=== PATIENT | female | born 1970 | race Caucasian/White ===

== ENCOUNTER 2019-06-09 01:01 | Day surgery (SDC) | payer OTHER, SELFPAY ==
[2019-06-06 08:35] VITALS: BMI 24.7
--- NOTE | 2019-06-09 06:53 | WPDANESEPPF ---
Anes - Initial Pre Proc Eval Procedure: Operation Date: 06/09/19 08:00 Proposed Procedures p Screening Colonoscopy - Nathaniel Mena MD Date/Time: 06/09/19 06:53 Surgeon: Nathaniel Mena MD Pre Op Diagnosis: Neoplasm Screening Patient Data Age: 48 Gender: F Height: 5 ft 8 in Weight: 74 kg Allergies Allergy/AdvReac Type Severity Reaction Status Date / Time No Known Allergies Allergy Unknown Unverified 06/06/19 08:34 Home Medications Medication Instructions Recorded Confirmed Type etonogestrel-ethinyl estradiol 1 vag ring VAGINAL MONTHLY 06/06/19 06/06/19 History [NuvaRing] Patient hx anesthesia problems: none Family hx anesthesia problems: none PMFSH Past Medical History Medical History (Updated 06/09/19 @ 06:54 by Mainor Becker MD) Breast adenoma Surgical History Surgical History (Updated 06/09/19 @ 06:55 by Mainor Becker MD) S/P excision of fibroadenoma of breast Family History Family History Mother Hypertension Family history of Alzheimer's disease Father Hypertension Family history of diabetes mellitus in first degree relative Sibling Family history of malignant neoplasm of kidney Social History Social History Smoking status: Never smoker Alcohol intake: current Anes - Eval Final PreProcedure Day of Procedure 06/09/19 06:53 Patient weight: normal Heart: regular rate and rhythm Lungs: clear to auscultation Airway: Mallampati scale class 1 Neurological: alert and oriented Last oral intake: >/= 8 hours ASA classification: I Emergent: no Anesthesia type and monitoring: general GIVS and standard monitoring Informed Consent: The patient's anesthetic plan and its attendant risks and benefits were discussed with the patient/family/POA. Questions were solicited and answers provided to the satisfaction of the patient/family/POA.
[2019-06-09 07:06] VITALS: BP 132/85; PULSE 64; RESP 18; TEMP 36.8; O2SAT 99
[2019-06-09] MEDS: LACTATED RINGERS 1,000 ML 150 ML IV CONT (07:11)
--- NOTE | 2019-06-09 07:16 | PM.HPGS ---
History of Present Illness History of Present Illness Consent: Risks, benefits, and alternatives have been discussed and questions answered. Patient agrees to proceed with procedure. Chief complaint: Neoplasm Screening Narrative: Jennifer Farris is a 48 year old W female [place] for her 1st screening colonoscopy. Patient is asymptomatic there is no family history of colon cancer. [facility] Past Medical History Medical History Breast adenoma Surgical History Surgical History S/P excision of fibroadenoma of breast Family History Family History Mother Hypertension Family history of Alzheimer's disease Father Hypertension Family history of diabetes mellitus in first degree relative Sibling Family history of malignant neoplasm of kidney Social History Social History Smoking status: Never smoker Alcohol intake: current Meds Home Medications and Allergies Home Medications Medication Instructions Recorded Confirmed Type etonogestrel-ethinyl estradiol 1 vag ring VAGINAL MONTHLY 06/06/19 06/06/19 History [NuvaRing] Allergies Allergy/AdvReac Type Severity Reaction Status Date / Time No Known Allergies Allergy Unknown Unverified 06/09/19 07:05 Vital Signs Vital Signs - 24 hr 06/09/19 07:06 Temperature 36.8 C Pulse Rate 64 Respiratory Rate 18 Blood Pressure 132/85 Pulse Oximetry 99 Exam Const: Orientation/consciousness: patient oriented x3 Resp: Auscultation: clear to auscultation bilaterally Cardio: Rate: regular rate Rhythm: regular rhythm Heart sounds: no murmurs GI: GI Palp: Yes Soft to palpation, No Tenderness to palpation present (GI), Yes No hepatosplenomegaly present and No Palpable mass present Auscultation: normal bowel sounds Neuro: General: patient oriented x3 and no focal motor deficits Extrem: General: no pedal edema Assessment and Plan Additional Plan Screening colonoscopy in average risk patient
[2019-06-09] MEDS: SIMETHICONE ORAL SUSPENSION 20 MG/0.3 ML 30 ML BOTTLE 0.6 ML IRRIGATION (08:18)
[2019-06-09 08:26] VITALS: BP 105/53; PULSE 53; RESP 17; O2SAT 100
[2019-06-09 08:36] VITALS: BP 106/59; PULSE 48; RESP 18; O2SAT 100
[2019-06-09 08:46] VITALS: BP 117/66; PULSE 50; RESP 17; O2SAT 100
== END 2019-06-09 09:09 | disposition home or self-care (01) ==
PROVIDERS: PCP Family Medicine; Visit Provider Internal Medicine Gastroenterology
PROC: 0DJD8ZZ Inspection of Lower Intestinal Tract, Via Natural or Artificial Opening Endoscopic (ICD-10-PCS; CPT 45378; principal; 2019-06-09 08:00)
DX: Z12.11 Encounter for screening for malignant neoplasm of colon (principal); D12.5 Benign neoplasm of sigmoid colon; K64.8 Other hemorrhoids
CPT/HCPCS: 45385; 88305; J2704; J7120

== ENCOUNTER 2019-08-28 07:26 | Outpatient (CLI) | payer OTHER, SELFPAY ==
--- NOTE | ~2019-08-28 | MM_ITS ---
EXAMINATION: MM screening alexander BI w calin HISTORY: Screening mammogram TECHNIQUE: Craniocaudal and mediolateral oblique 3-D tomosynthesis images were obtained and synthetic 2-D images were generated. CAD analysis was submitted and interpreted. COMPARISON: 08/02/2018, 07/17/2017 bilateral digital screening mammogram examinations 07/13/2016 diagnostic left digital mammogram 07/03/2016 bilateral digital screening mammogram BREAST PARENCHYMAL COMPOSITION: There are scattered areas of fibroglandular density. FINDINGS: There is no evidence of suspicious mass, calcification, or architectural distortion to sugg est malignancy in either breast. There has been no suspicious interval change. IMPRESSION: 1. No mammographic evidence of malignancy. 2. Recommend routine screening mammography in one year. BI-RADS Category 1: Negative Reviewed, dictated and finalized at location A.
== END 2019-08-28 07:27 | disposition home or self-care (01) ==
PROVIDERS: PCP Family Medicine; Visit Provider Nurse Practitioner
DX: Z12.31 Encounter for screening mammogram for malignant neoplasm of breast (principal)
CPT/HCPCS: 77063; 77067

== ENCOUNTER → 2020-07-16 00:57 | Outpatient (CLI) | payer OTHER, SELFPAY ==
[2020-07-16 21:02] LABS: SARS-CoV-2 RNA PCR Negative
== END ==
PROVIDERS: PCP Family Medicine; Visit Provider Obstetrics & Gynecology Gynecology
DX: Z01.812 Encounter for preprocedural laboratory examination (principal); Z20.822 Contact with and (suspected) exposure to COVID-19
CPT/HCPCS: C9803; U0003; U0005

== ENCOUNTER 2020-07-19 02:38 | Day surgery (SDC) | payer OTHER, SELFPAY ==
[2020-06-22 13:01] VITALS: BMI 24.3
--- NOTE | 2020-07-07 13:26 | PC.NURSE ---
Pt states no changes in health history or medications since previous interview. New Covid date/time and pre-op instructions reviewed with pt. Pt denies questions at this time.
--- NOTE | 2020-07-19 07:31 | WPDANESEPPF ---
Anes - Initial Pre Proc Eval Procedure: Operation Date: 07/19/20 09:30 Proposed Procedures p Hysteroscopy, Dilation and Curettage - Carina Shell MD Date/Time: 07/19/20 07:31 Surgeon: Carina Shell MD Pre Op Diagnosis: cervical polyps Patient Data Age: 49 Gender: F Height: 1.73 m Weight: 72.5 kg Allergies Allergy/AdvReac Type Severity Reaction Status Date / Time No Known Allergies Allergy Unknown Unverified 07/19/20 08:29 Home Medications Medication Instructions Recorded Confirmed Type etonogestrel-ethinyl estradiol 1 vag ring VAGINAL MONTHLY 06/06/19 07/07/20 History [NuvaRing] Patient hx anesthesia problems: none Family hx anesthesia problems: none PMFSH Past Medical History Medical History (Updated 07/19/20 @ 07:38 by Carina Shell MD) Breast adenoma (normal spontaneous vaginal delivery) x3 Status post hysteroscopy 2018-benign for menorrhagia Surgical History Surgical History (Updated 07/19/20 @ 07:37 by Carina Shell MD) History of elective induced at 20 wks for CMV S/P excision of fibroadenoma of breast Family History Family History Mother Hypertension Family history of Alzheimer's disease Father Hypertension Family history of diabetes mellitus in first degree relative Sibling Family history of malignant neoplasm of kidney Social History Social History Smoking status: Never smoker Alcohol intake: current Drinks per week: 1 Substance use: never Substance use type: does not use Living arrangements: with family Spiritual care concerns: No Anes - Eval Final PreProcedure Day of Procedure 07/19/20 07:31 Patient weight: normal Heart: regular rate and rhythm Lungs: clear to auscultation and normal air movement Airway: Mallampati scale class II Neurological: alert and oriented Last oral intake: >/= 8 hours ASA classification: I Emergent: no Anesthetic plan: proceed Anesthesia type and monitoring: general GIVS and standard monitoring Informed Consent: The patient's anesthetic plan and its attendant risks and benefits were discussed with the patient/family/POA. Questions were solicited and answers provided to the satisfaction of the patient/family/POA.
--- NOTE | 2020-07-19 07:32 | WPDHPUPDATE1 ---
History and Physical Update Update Date/Time: 07/19/20 07:32 History and Physical has been reviewed, including an updated exam of the patient. There are NO changes in the patient's condition. Risks, benefits, and alternatives have been discussed and questions answered. Patient agrees to proceed with procedure.
--- NOTE | 2020-07-19 07:32 | PM.HPGS ---
History of Present Illness History of Present Illness Consent: Risks, benefits, and alternatives have been discussed and questions answered. Patient agrees to proceed with procedure. Chief complaint: cervical polyps Narrative: Jennifer Farris is a 49 year old female with possible polyp found on work up of abnormal pap (ASC-R/O HG with -HPV). Colposcopy was performed and biopsy x 2 with cervicitis and reactive atypia at one site and possible mild dysplasia at the other. ECC showed fragments of polyp but no polyp visible. Recommend to proceed with hysteroscopy to further evaluate. Risks of infection, bleeding, and perforation reviewed. Possible pathology reviewed. Agrees to proceed. Review of Systems Review of Systems: All systems reviewed & are unremarkable except as noted in HPI and below PMFSH Past Medical History Medical History (Updated 07/19/20 @ 07:38 by Carina Shell MD) Breast adenoma (normal spontaneous vaginal delivery) x3 Status post hysteroscopy 2018-benign for menorrhagia Surgical History Surgical History (Updated 07/19/20 @ 07:37 by Carina Shell MD) History of elective induced at 20 wks for CMV S/P excision of fibroadenoma of breast Family History Family History Mother Hypertension Family history of Alzheimer's disease Father Hypertension Family history of diabetes mellitus in first degree relative Sibling Family history of malignant neoplasm of kidney Social History Social History Smoking status: Never smoker Alcohol intake: current Drinks per week: 1 Substance use: never Substance use type: does not use Living arrangements: with family Spiritual care concerns: No Meds Home Medications and Allergies Home Medications Medication Instructions Recorded Confirmed Type etonogestrel-ethinyl estradiol 1 vag ring VAGINAL MONTHLY 06/06/19 07/07/20 History [NuvaRing] Allergies Allergy/AdvReac Type Severity Reaction Status Date / Time No Known Allergies Allergy Unknown Unverified 07/07/20 13:27 Exam Const: General: healthy appearing and alert Orientation/consciousness: patient oriented x3 Resp: Effort & Inspection: normal respiratory effort Auscultation: clear to auscultation bilaterally Cardio: Rate: regular rate Rhythm: regular rhythm GI: GI Palp: Yes Soft to palpation, No Tenderness to palpation present (GI) and No Palpable mass present : External Female Exam: normal external appearance Speculum Exam - Vagina: normal appearance of the vagina and normal vaginal discharge Speculum Exam - Cervix: normal appearance of the cervix Bimanual exam- vagina & uterus: uterine size normal and consistency normal Bimanual Exam- Adnexa, other: normal adnexae and No adnexal tenderness Neuro: General: patient oriented x3 Assessment and Plan Assessment and plan (1) Polyp at cervical os: Code(s): N84.1 - Polyp of cervix uteri Status: Acute Assessment and Plan: not visible but on pathology plan to evaluate with hysteroscopy
[2020-07-19] MEDS: LACTATED RINGERS 1,000 ML 30 ML IV CONT (08:21)
[2020-07-19] MEDS: ACETAMINOPHEN 500 MG TABLET 1000 MG PO (08:21)
--- NOTE | 2020-07-19 09:53 | PM.PROC ---
Procedure Note - Detailed Date of procedure: 07/19/20 Pre-op diagnosis: cervical polyps Post-op diagnosis: same Procedure performed: D and C hysteroscopy with MyoSure Description of procedure: The patient was taken to the operating room and placed in the dorsal lithotomy position under anesthesia. She was prepped and draped in the usual sterile fashion. [place] speculum was placed in the vagina and the cervix is grasped on the anterior lip with a tenaculum. The uterus is sounded to 7cm. The cervix is injected with 1% lidocaine in each quadrant and serially dilated with [place]gar is. The diagnostic hysteroscope is placed with the stated findings. The MyoSure device is requested and opened. The patient observation assistant opened the small MyoSure camera and the XL MyoSure device therefore the large MyoSure camera was then opened and utilized. Under direct visualization the thickened areas and lesions were removed with the MyoSure device. MyoSure device and camera are removed. Medium sharp curette was used to sharply curette the endometrium until a good uterine cry was noted in all areas. All instruments are removed. Sponge, needle, and instrument counts are correct per the OR staff. Patient is awakened from anesthesia and taken to recovery in stable condition. Anesthesia: MAC and local Surgeon: Carina Shell MD Estimated blood loss (mL): 5 Drains: No Packing: No Pathology: yes (endometrial curettings and shavings) Complications: No immediate complications Condition: stable Disposition: PACU Findings: Thickened endometrium anteriorly with a polyp appearing lesion at the left mid fundus. Thickened lining near the endocervical junction anteriorly on the right. No specific cervical lesions noted.
[2020-07-19 10:00] VITALS: BP 120/77; PULSE 67; RESP 14; O2SAT 98
[2020-07-19 10:30] VITALS: BP 147/79; PULSE 49; RESP 12
[2020-07-19 11:00] VITALS: BP 164/81; PULSE 42; RESP 14; O2SAT 100
[2020-07-19 11:23] VITALS: BP 166/80
[2020-07-19 11:25] VITALS: BP 181/84; PULSE 52
[2020-07-19 11:35] VITALS: BP 136/84; PULSE 59; RESP 14
--- NOTE | 2020-07-19 11:58 | SUR.PHASEII ---
[address] MUÑOZ OF PT BLOOD PRESSURE BEING HYPERTENSIVE OVER THE LAST 45 MINUTES IN BOTH ARMS. PT WAS HYPERTENSIVE IN PRE-OP, HE RECOMMENDS SHE FOLLOW UP WITH HER PRIMARY. NO NEW ORDERS
== END 2020-07-19 11:55 | disposition home or self-care (01) ==
PROVIDERS: PCP Family Medicine; Visit Provider Obstetrics & Gynecology Gynecology
PROC: 0U5B8ZZ Destruction of Endometrium, Via Natural or Artificial Opening Endoscopic (ICD-10-PCS; CPT 58563; principal; 2020-07-19 09:30)
DX: D25.0 Submucous leiomyoma of uterus (principal); B25.9 Cytomegaloviral disease, unspecified
CPT/HCPCS: 58561; 88305; A9270; C9803; J1100; J2250; J2405; J2704; J3010; J7030; J7120; U0003; U0005

== ENCOUNTER 2020-08-30 14:54 | Outpatient (CLI) | payer OTHER, SELFPAY ==
--- NOTE | ~2020-08-30 | MM_ITS ---
EXAMINATION: MM screening alexander BI w calin HISTORY: Screening mammogram TECHNIQUE: Craniocaudal and mediolateral oblique 3-D tomosynthesis images were obtained and synthetic 2-D images were generated. CAD analysis was submitted and interpreted. COMPARISON: 09/13/2019, 08/02/2018, 07/17/2017 bilateral digital screening mammogram examinations BREAST PARENCHYMAL COMPOSITION: There are scattered areas of fibroglandular density. FINDINGS: There is no evidence of suspicious mass, calcification, or architectural distortion to sugg est malignancy in either breast. There has been no suspicious interval change. IMPRESSION: 1. No mammographic evidence of malignancy. 2. Recommend routine screening mammography in one year. BI-RADS Category 1: Negative Reviewed, dictated and finalized at location A.
== END 2020-08-30 14:55 | disposition home or self-care (01) ==
PROVIDERS: PCP Family Medicine; Visit Provider Nurse Practitioner
DX: Z12.31 Encounter for screening mammogram for malignant neoplasm of breast (principal)
CPT/HCPCS: 77063; 77067

== ENCOUNTER 2021-09-23 08:36 | Outpatient (CLI) | payer OTHER, SELFPAY ==
--- NOTE | ~2021-09-23 | MM_ITS ---
EXAMINATION: MM screening alexander BI w calin HISTORY: Screening TECHNIQUE: Craniocaudal and mediolateral oblique 3-D tomosynthesis images were obtained and synthetic 2-D images were generated. CAD analysis was submitted and interpreted. COMPARISON: Comparison to multiple prior studies sequentially, with oldest reviewed study dated 07/03. BREAST PARENCHYMAL COMPOSITION: There are scattered areas of fibroglandular density. FINDINGS: There is no evidence of suspicious mass, calcification, or architectural distortion to sugg est malignancy in either breast. There has been no suspicious interval change. IMPRESSION: 1. No mammographic evidence of malignancy. 2. Recommend routine screening mammography in one year. BI-RADS Category 1: Negative Reviewed, dictated and finalized at location A.
== END 2021-09-23 08:37 | disposition home or self-care (01) ==
LOC: ANHIMG 08:37
PROVIDERS: PCP Family Medicine; Visit Provider Nurse Practitioner
DX: Z12.31 Encounter for screening mammogram for malignant neoplasm of breast (principal)
CPT/HCPCS: 77063; 77067

== ENCOUNTER 2022-11-23 07:22 | Outpatient (CLI) | payer OTHER, SELFPAY ==
--- NOTE | ~2022-11-23 | MM_ITS ---
EXAMINATION: MM screening [facility] BI w calin HISTORY: Screening mammogram TECHNIQUE: Craniocaudal and mediolateral oblique 3-D tomosynthesis images were obtained and synthetic 2-D images were generated. CAD analysis was submitted and interpreted. COMPARISON: 09/23/2021, 08/30/2020, 08/28/2019 BREAST PARENCHYMAL COMPOSITION: There are scattered areas of fibroglandular density. FINDINGS: No suspicious mass, calcification, or architectural distortion are identified in either elma ast to suggest malignancy. There has been no suspicious interval change. IMPRESSION: 1. No mammographic evidence of malignancy. 2. Recommend routine screening mammography in one year. BI-RADS Category 1: Negative Reviewed, dictated and finalized at location L.
== END 2022-11-23 07:23 | disposition home or self-care (01) ==
PROVIDERS: PCP Family Medicine; Visit Provider Nurse Practitioner
DX: Z12.31 Encounter for screening mammogram for malignant neoplasm of breast (principal)
CPT/HCPCS: 77063; 77067

== ENCOUNTER → 2023-02-26 16:02 | Outpatient (CLI) | payer OTHER, SELFPAY ==
--- NOTE | ~2023-02-26 | XR_ITS ---
EXAMINATION: XR knee RT 3V DATE: 02/26/2023 16:58 INDICATION: Knee pain. TECHNIQUE: 3 views of right knee were obtained. COMPARISON: None. FINDINGS: Bone alignment is normal. No fracture. There is mild osteoarthritis of medial and patellofe moral compartments characterized by tiny osteophytes. No knee joint effusion. IMPRESSION: 1. Mild knee osteoarthritis. Reviewed, dictated and finalized at location E. 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
== END ==
PROVIDERS: PCP Family Medicine; Visit Provider Physician Assistant Medical
DX: M17.11 Unilateral primary osteoarthritis, right knee (principal)
CPT/HCPCS: 73562

== ENCOUNTER 2023-11-27 07:18 | Outpatient (CLI) | payer OTHER, SELFPAY ==
--- NOTE | ~2023-11-27 | MM_ITS ---
EXAMINATION: MM screening alexander BI w calin HISTORY: Screening TECHNIQUE: Craniocaudal and mediolateral oblique 3-D tomosynthesis images were obtained and synthetic 2-D images were generated. CAD analysis was submitted and interpreted. COMPARISON: Comparison to multiple prior studies sequentially, with oldest reviewed study dated 06/2019. BREAST PARENCHYMAL COMPOSITION: Not dense: There are scattered areas of fibroglandular density. FINDINGS: New focal asymmetries centrally in the right breast on CC view. Left breast is stable witho ut evidence for malignancy. IMPRESSION: 1. New focal asymmetry centrally in the right breast on CC view. 2. Additional mammographic views and possible breast ultrasound are recommended. BI-RADS Category 0: Incomplete: Needs additional imaging evaluation. Reviewed, dictated and finalized at location B. IMPRESSION: 1. New focal asymmetry centrally in the right breast on CC view. 2. Additional mammographic views and possible breast ultrasound are recommended . BI-RADS Category 0: Incomplete: Needs additional imaging evaluation.
== END 2023-11-27 07:19 | disposition home or self-care (01) ==
LOC: ANHIMG 07:19
PROVIDERS: PCP Family Medicine; Visit Provider Obstetrics & Gynecology Gynecology
DX: Z12.31 Encounter for screening mammogram for malignant neoplasm of breast (principal); N64.89 Other specified disorders of breast
CPT/HCPCS: 77063; 77067

== ENCOUNTER 2023-12-13 11:22 | Outpatient (CLI) | payer OTHER, SELFPAY ==
--- NOTE | ~2023-12-13 | MM_ITS ---
EXAMINATION: MM diagnostic alexander RT w calin HISTORY: Right breast asymmetry TECHNIQUE: Additional 3-D tomosynthesis images of the right breast were performed and synthetic 2-D i mages were generated. CAD analysis was submitted and interpreted. COMPARISON: 11/27/2023, 11/23/2022, 09/23/2021, 08/30/2020 BREAST PARENCHYMAL COMPOSITION:Not Dense. There are scattered areas of fibroglandular density. FINDINGS: Spot compression views demonstrate no persistent mass lesion or suspicious distortion. No s uspicious microcalcification. IMPRESSION: No mammographic evidence for malignancy. BI-RADS Category 1: Negative Reviewed, dictated and finalized at location M.
== END 2023-12-13 11:23 | disposition home or self-care (01) ==
LOC: ANHIMG 11:23
PROVIDERS: PCP Family Medicine; Visit Provider Obstetrics & Gynecology Gynecology
DX: R92.8 Other abnormal and inconclusive findings on diagnostic imaging of breast (principal)
CPT/HCPCS: 77061; 77065; G0279

== ENCOUNTER 2024-09-29 00:44 | Day surgery (SDC) | payer OTHER, SELFPAY ==
[2024-09-08 11:15] VITALS: BMI 26.8
--- OUTSIDE RECORDS SUMMARY | 2024-09-29 00:46 | XMS_ITS | Clinical Summary ---
Author Organization [facility] Address [address] [place] [address] Care Team Providers Care Junior Linux Administrator Name Role Phone Vito Tirado MD Primary Care Provider [phone] Source Comments [facility],non-owned Affiliates and Associated Physician Practices is amultiple site organization consisting of ambulatory clinics and hospital sitesin [place], [place], [place] and [place]. This disclosure is being madepursuant to the Care Everywhere program and may not contain all information available regarding this patient. 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 Gender Identity Not on file Sexual Orientation Not on file Plan of Treatment Health Maintenance Due Date Last Done Comments COLOGUARD (AGES 45-75) - COL ON CA SCREENING 1968 COLON MONITORING 1968 COLONOSCOPY - COLON CA SCREENING 1968 CT COLONOGRAPHY - COLON CA SCREENING 1968 Colorectal Cancer Screening 1968 FIT - COLON CA SCREENING 1968 FLEX SIG - COLON CA SCREENING 1968 LIPID TESTING 1968 MAMMOGRAM 1968 HIV SCREENING 12/13/1983 HEPATITIS C SCREENING 12/08/1986 DTAP/TDAP/TD VACCINES (1 - Tdap) 12/13/1987 HEPATITIS B VACCINE (1 of 3 - 19+ 3-dose series) 12/13/1987 PNEUMOCOCCAL VACCINE 50+ (1 of 1 - PCV) 2018 ZOSTER VACCINE (1 of 2) 2018 COVID-19 VACCINE (1 - 2023-2 5 season) 2023 DEPRESSION SCREENING 03/26/2024 INFLUENZA VACCINE (Season Ended) 2024 HIB VACCINE Aged Out No longer eligi ble based on patient's age to complete this topic HPV VACCINE Aged Out No longer eligi ble based on patient's age to complete this topic MENINGOCOCCAL (Group B) VACC INE SHARED DECISION-MAKING Aged Out No longer eligibl e based on patient's age to complete this topic MENINGOCOCCAL GROUPS A/C/Y/W VACCINE Aged Out No longer eligible b ased on patient's age to complete this topic Insurance [employer] Care Teams Junior Linux Administrator Relationship Specialty Start Date End Date Vito Tirado MD [address] [place] [address] PCP - General 09/13/20
--- OUTSIDE RECORDS SUMMARY | 2024-09-29 00:46 | XMS_ITS | Clinical Summary ---
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 Gender Identity Not on file Sexual Orientation Not on file Plan of Treatment Health Maintenance Due Date Last Done Comments Hepatitis C Virus (HCV) Screening 1968 TdaP Immunization 1968 Hepatitis B Immunization (1 of 3 - 19+ 3-dose series) 12/13/1987 Pap Smear 1989 Cervical Cancer Screening (CCS) 1998 HPV/Cotest 1998 Colonoscopy 2013 Colorectal Cancer Screening 2013 Cologuard 2018 Immunochemical Fecal Occult Blood 2018 Mammogram 2018 Pneumococcal Immunization (5 0+ years) (1 of 1 - PCV) 2018 Zoster Immunization (1 of 2) 2018 Influenza Immunization (#1) 2023 SARS-COV-2 Immunization ( season) 2023 Respiratory Syncytial Virus (RSV) Immunization (Adult) (1 - 1-dose 75+ series) 12/13/2043 Meningococcal Immunization (ACWY) Aged Out No longer eligible based on patient's age to complete this topic Pneumococcal Immunization Combined Aged Out No longer eligible based on patient's age to complete this topic Rotavirus Immunization Aged Out No lo nger eligible based on patient's age to complete this topic
[2024-09-29 12:04] VITALS: BP 137/90; PULSE 61; RESP 20; TEMP 36.8; O2SAT 99
[2024-09-29] MEDS: LACTATED RINGERS 1,000 ML 150 ML IV CONT (12:18)
--- NOTE | 2024-09-29 12:32 | WPDANESEPPF ---
Anes - Initial Pre Proc Eval Procedure: Operation Date: 09/29/24 13:00 Proposed Procedures p Screening Colonoscopy - Marcus Ballesteros MD Date/Time: 09/29/24 12:32 Surgeon: Marcus Ballesteros MD Pre Op Diagnosis: screening Patient Data Age: 53 Gender: F Height: 1.73 m Weight: 81.6 kg Last Vital Signs Temp 98.3 F 09/29/24 12:04 Pulse 61 09/29/24 12:04 Resp 20 09/29/24 12:04 BP 137/90 09/29/24 12:04 Pulse Ox 99 09/29/24 12:04 O2 Del Method Room Air 09/29/24 12:04 Allergies Allergy/AdvReac Type Severity Reaction Status Date / Time No Known Allergies Allergy Unknown Verified 09/08/24 11:08 Home Medications ?Medication ?Instructions ?Recorded ?Confirmed ?Type cholecalciferol (vitamin D3) 100 100 mcg PO DAILY 09/12/23 09/29/24 History mcg (4,000 unit) tablet Patient hx anesthesia problems: none Family hx anesthesia problems: none Results Review: All pre-operative results and documents have been reviewed as part of the pre-operative evaluation. [facility] Past Medical History Medical History Status post hysteroscopy 2018-benign for menorrhagia (normal spontaneous vaginal delivery) x3 Breast adenoma Surgical History Surgical History History of elective induced at 20 wks for CMV S/P excision of fibroadenoma of breast Family History Family History Mother Hypertension Family history of Alzheimer's disease Father Hypertension Family history of diabetes mellitus in first degree relative Sibling Family history of malignant neoplasm of kidney Social History Social History Social History: Smoking status: Never smoker Second hand tobacco smoke exposure: No Alcohol intake: never Alcohol use details: Occasionally Substance use: never Substance use type: does not use Do You Feel Safe in your Home?: Yes Lack of Transportation: No Lack of Food: Never True Current Housing: I Have Housing Concerned About Future Housing: No Difficulty Paying Gas/Electric Bills: No Difficulty Paying for Meds: No Currently Unemployed: No Education: Master's Degree or Higher Difficulty w/ Childcare or Family Care: No Living arrangements: with family Occupation/Education: occupation 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 Gender identity (if verbalized by the patient): Female Sexual Orientation (if Verbalized by the Patient): Straight or Heterosexual Spiritual care concerns: No Anes - Eval Final PreProcedure Day of Procedure 09/29/24 12:32 Patient weight: normal Heart: regular rate and rhythm Lungs: clear to auscultation Airway: Mallampati scale class II Neurological: alert and oriented Last oral intake: >/= 8 hours ASA classification: II Emergent: no Anesthetic plan: proceed Anesthesia type and monitoring: general GIVS and standard monitoring Results Review: All pre-operative results and documents have been reviewed as part of the pre-operative evaluation. Informed Consent: The patient's anesthetic plan and its attendant risks and benefits were discussed with the patient/family/POA. Questions were solicited and answers provided to the satisfaction of the patient/family/POA.
--- NOTE | 2024-09-29 12:46 | P.HP_ITS ---
H&P: HPI History of Present Illness Date/Time: 09/29/24 12:46 Chief Complaint: History of colon polyps Narrative: The patient has a history of colonic polyps, the last colonoscopy was in 2019, finding a tubular adenoma. Review of Systems Review of Systems: All systems reviewed & are unremarkable except as noted in HPI and below [facility] Past Medical History Medical History Status post hysteroscopy 2018-benign for menorrhagia (normal spontaneous vaginal delivery) x3 Breast adenoma Surgical History Surgical History History of elective induced at 20 wks for CMV S/P excision of fibroadenoma of breast Family History Family History Mother Hypertension Family history of Alzheimer's disease Father Hypertension Family history of diabetes mellitus in first degree relative Sibling Family history of malignant neoplasm of kidney Social History Social History Social History: Smoking status: Never smoker Second hand tobacco smoke exposure: No Alcohol intake: never Alcohol use details: Occasionally Substance use: never Substance use type: does not use Do You Feel Safe in your Home?: Yes Lack of Transportation: No Lack of Food: Never True Current Housing: I Have Housing Concerned About Future Housing: No Difficulty Paying Gas/Electric Bills: No Difficulty Paying for Meds: No Currently Unemployed: No Education: Master's Degree or Higher Difficulty w/ Childcare or Family Care: No Living arrangements: with family Occupation/Education: 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 Gender identity (if verbalized by the patient): Female Sexual Orientation (if Verbalized by the Patient): Straight or Heterosexual Spiritual care concerns: No Meds Home Medications and Allergies Home Medications ?Medication ?Instructions ?Recorded ?Confirmed ?Type cholecalciferol (vitamin D3) 100 100 mcg PO DAILY 09/12/23 09/29/24 History mcg (4,000 unit) tablet Allergies Allergy/AdvReac Type Severity Reaction Status Date / Time No Known Allergies Allergy Unknown Verified 09/08/24 11:08 Vital Signs Vital Signs - 24 hr 09/29/24 12:04 Temperature 98.3 F Pulse Rate 61 Respiratory Rate 20 Blood Pressure 137/90 Pulse Oximetry 99 Oxygen Delivery Room Air Exam Const: General: cooperative and healthy appearing Resp: Effort & Inspection: normal respiratory effort and able to speak in complete sentences Auscultation: clear to auscultation bilaterally Cardio: Rate: regular rate Rhythm: regular rhythm GI: Inspection: normal to inspection GI Palp: No No hepatosplenomegaly present Auscultation: normal bowel sounds Rectal Exam: deferred Skin: General skin exam: normal color Psych: Appearance: grossly normal Mental Status: mental status grossly normal Assessment and Plan Assessment and plan (1) History of colonic polyps: Code(s): Z86.0100 - Personal history of colon polyps, unspecified Status: Acute Assessment and Plan: The patient is deemed a good candidate for the procedure. Consent signed. Will proceed.
--- NOTE | 2024-09-29 13:03 | S_PTH ---
PATIENT: Jennifer Farris LOC: [facility]AMEL Stahl#:[id number] AGE/SX: 53/F ROOM: RE09/29/[address]: Marcus Ballesteros MD : 1970 BED: DIS: 09/29/2024 SPEC #: [id number] RECD: 09/29/24 13:23 STATUS: GENIE REQ #: [id number] ALEJA: 09/29/24 13:[address]: Marcus Ballesteros DEPT: [facility] Surgical RECD BY: Martha Cee ENTERED: 09/29/24 13:23 SP TYPE: Surgical OTHR DR: Vito Tirado MD Tissues: A - Colon Polypectomy Procedures: Hematoxylin and Eosin Stain Gross and Microscopic Level 4
[2024-09-29 13:05] VITALS: BP 113/58; PULSE 53; RESP 16; O2SAT 98
[2024-09-29 13:15] VITALS: BP 109/65; PULSE 51; RESP 15; O2SAT 98
[2024-09-29 13:25] VITALS: BP 113/68; PULSE 45; RESP 18; O2SAT 100
[2024-09-29 13:30] VITALS: BP 128/70; PULSE 44; RESP 18; O2SAT 100
== END 2024-09-29 13:54 | disposition home or self-care (01) ==
PROVIDERS: PCP Family Medicine; Referring Provider Physician Assistant Medical; Visit Provider Internal Medicine Gastroenterology
PROC: 0DJD8ZZ Inspection of Lower Intestinal Tract, Via Natural or Artificial Opening Endoscopic (ICD-10-PCS; CPT 45378; principal; 2024-09-29 13:00)
DX: Z12.11 Encounter for screening for malignant neoplasm of colon (principal); K63.5 Polyp of colon; K64.8 Other hemorrhoids; Z98.890 Other specified postprocedural states; Z80.51 Family history of malignant neoplasm of kidney
CPT/HCPCS: 45385; 88305; J2003; J2704; J7120

== ENCOUNTER 2024-11-28 14:49 | Outpatient (CLI) | payer OTHER, SELFPAY ==
--- NOTE | ~2024-11-28 | MM_ITS ---
EXAMINATION: MM screening [facility] BI w calin HISTORY: Screening TECHNIQUE: Craniocaudal and mediolateral oblique 3-D tomosynthesis images were obtained and synthetic 2-D images were generated. CAD analysis was submitted and interpreted. COMPARISON: Mammograms of 11/27/2023 and 11/23/2022 BREAST PARENCHYMAL COMPOSITION: There are scattered areas of fibroglandular density. FINDINGS: There is no evidence of suspicious mass, calcification, or architectural distortion to suggest malignancy. There has been no suspicious interval change. IMPRESSION: 1. No mammographic evidence of malignancy. Recommend routine screening mammography in one year. BI-RADS Category 2: Benign finding(s) Reviewed, dictated and finalized at location Q. IMPRESSION: 1. No mammographic evidence of malignancy. Recommend routine screening mammogra phy in one year. BI-RADS Category 2: Benign finding(s)
--- OUTSIDE RECORDS SUMMARY | 2024-11-28 14:54 | XMS_ITS | Clinical Summary ---
Author Organization [facility] [address] Address [address] [place] [id number] Care Team Providers Care Inside B2B Sales Name Role Phone Vito Tirado MD Primary Care Provider Allergies No known active allergies Medications cholecalcifero l (VITAMIN D-3) 4,000 unit tablet Active celecoxib (CeleBREX) 200 mg capsule TAKE 1 CAPSULE(200 MG) BY MOUTH DAILY FOR 14 DAYS 14 capsule 5 Active celecoxib (CeleBREX) 200 mg capsule Take 1 capsule (200 mg total) by mouth daily for 14 days 14 capsule 5 11/19/19 25 Discontinued Active Problems No known active problems Encounters Date Type Department Care Team Description 10/03/2024 8:30 AM CDT Office Visit [facility] Sports Medicine and Primary Care at [address] [phone] Eric Ramos DO Acute pain of right knee (Primary Dx); Right patellofemoral syndrome 10/03/2024 8:25 AM CDT Ancillary Procedure [facility] Imaging at [address] [phone] Acute pain of right knee 10/03/2024 Orders Only [facility] Sports [facility] Primary Care at [address] [phone] Eric Ramos DO Right patellofemoral syndrome (Primary Dx); Acute pain of right knee from Last 3 Months Social History Tobacco Use Types Packs/Day Years Used Date Smoking Tobacco: Never Smokeless Tobacco: Never Comments Unknown Sex and Gender Information Value Date Recorded Sex Assigned at Not on file 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 Gender Identity Female 09/27/2024 3:34 PM CDT Sexual Orientation Straight 09/27/2024 3: 34 PM CDT Obstetrics History Last Filed Vital Signs Vital Sign Reading Time Taken Comments Blood Pressure 133/81 10/03/2024 8:36 AM CDT Pulse 53 10/03/2024 8:36 AM CDT Temperature - - Respiratory Rate - - Oxygen Saturation - - Inhaled Oxygen Concentration - - Weight 82.4 kg (181 lb 11.2 oz) 10/03/2024 8:36 AM CDT Height 172.7 cm (5' 8) 10/03/2024 8:36 AM CDT Body Mass Index 27.63 10/03/2024 8:36 AM CDT Plan of Treatment Health Maintenance Due Date Last Done Comments Breast Cancer Screening-Mammogram 1970 Cervical Cancer Screening 1970 Colon Cancer Screening-Colonoscopy 1968 Depression Screening 1970 Hepatitis C Screening 1970 DTaP/Tdap/Td Vaccine (1 - Tdap) 12/13/1979 Hepatitis B Screening 1986 Regular Well Visit/Exam 18-64 1986 Covid-19 Vaccine ( season) 2023 02/24/2023, 04/03/2021, 07/11/2020, Additional history exists Influenza Vaccine (#1) 2024 , 01/23/2018, 01/01/2017, Additional history exists Zoster Vaccine Completed 10/02/2022, 04/11/2022 Pneumococcal vaccine <65 Aged Out No longer eligible based on patient's age to complete this topic Procedures Procedure Name Priority Date/Time Associated Diagnosis Comments XR KNEE RIGHT 4 OR MORE VIEWS Schedule Routine, Read Routine (OP Routine) 10/03/2024 8:32 AM CDT Acute pain of right knee from Last 3 Months Results * XR Knee Right 4 or More Views (10/03/2024 8:32 AM CDT) Anatomical Region Laterality Modality Lower Extremities, Knee Right Digital Radiography 10/03/2024 8:56 AM CDT Narrative 10/03/2024 8:57 AM CDT EXAM DESCRIPTION: XR KNEE RIGHT 4 OR MORE VIEWS REASON FOR STUDY: pain Medial knee pain x 4 months TECHNIQUE: There are 4 radiographic view(s) of the right knee . COMPARISON: No prior. FINDINGS: Normal mineralization. No acute fracture or dislocation. Minimal joint space narrowing medial compartment. There is no joint effusion. Soft tissues are unremarkable. IMPRESSION: Minimal osteoarthritis medial compartment. THIS IS AN ELECTRONICALLY VERIFIED FINAL REPORT 10/03/2024 8:57 AM - Electronically signed by Eric HUA T: Report ID: [id number] Reading Location: [id number] Procedure Note Eric Mcdermott MD - 10/03/2024 EXAM DESCRIPTION: XR KNEE RIGHT 4 OR MORE VIEWS REASON FOR STUDY: pain Medial knee pain x 4 months TECHNIQUE: There are 4 radiographic view(s) of the right knee . COMPARISON: No prior. FINDINGS: Normal mineralization. No acute fracture or dislocation.Minimal joint space narrowing medial compartment. There is no joint effusion.Soft tissues are unremarkable. IMPRESSION: Minimal osteoarthritis medial compartment. THIS IS AN ELECTRONICALLY VERIFIED FINAL REPORT 10/03/2024 8:57 AM - Electronically signed by Eric HUA T: Report ID: [id number] Reading Location: [id number] Eric Ramos DO IMG XR PROCEDURES Gabriela l Result from Last 3 Months Insurance [facility] Care Teams Inside B2B Sales Relationship Specialty Start Date End Date Vito Tirado MD [address] [facility] [address] [place] [address] PCP - General Family Medicine 09/15/24
--- OUTSIDE RECORDS SUMMARY | 2024-11-28 14:54 | XMS_ITS | Clinical Summary ---
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 Gender Identity Not on file Sexual Orientation Not on file Plan of Treatment Health Maintenance Due Date Last Done Comments Hepatitis C Virus (HCV) Screening 1970 TdaP Immunization 1968 Hepatitis B Immunization (1 of 3 - 19+ 3-dose series) 12/13/1987 Pap Smear 1989 Cervical Cancer Screening (CCS) 1998 HPV/Cotest 1998 Cologuard 2013 Colonoscopy 2013 Colorectal Cancer Screening 2013 Immunochemical Fecal Occult Blood 2013 Pneumococcal Immunization (5 0+ years) (1 of 1 - PCV) 2018 Zoster Immunization (1 of 2) 2018 SARS-COV-2 Immunization ( - 2023-25 season) 2023 Influenza Immunization (#1) 2024 Respiratory Syncytial Virus (RSV) Immunization (Adult) (1 - 1-dose 75+ series) 12/13/2043 Human Papillomavirus (HPV) Immunization Aged Out No longer eligible b ased on patient's age to complete this topic Meningococcal Immunization (ACWY) Aged Out No longer eligible based on patient's age to complete this topic Rotavirus Immunization Aged Out No lo nger eligible based on patient's age to complete this topic
--- OUTSIDE RECORDS SUMMARY | 2024-11-28 14:54 | XMS_ITS | Clinical Summary ---
Author Organization [facility] Address [address] [place] [address] Care Team Providers Care School Bus Driver/Custodian Name Role Phone Vito Tirado MD Primary Care Provider [phone] Source Comments [facility],non-owned Affiliates and Associated Physician Practices is amultiple site organization consisting of ambulatory clinics and hospital sitesin [place], [place], [place] and [place]. This disclosure is being madepursuant to the Care Everywhere program and may not contain all information available regarding this patient. 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 Gender Identity Not on file Sexual Orientation [...] of 3 - 19+ 3-dose series) 12/13/1987 PAP SMEAR 08/31/2000 08/31/1997 PNEUMOCOCCAL VACCINE 50+ (1 of 1 - PCV) 2018 ZOSTER VACCINE (1 of 2) 2018 DEPRESSION SCREENING 03/26/2024 COVID-19 VACCINE (1 - 2023-2 5 season) 2024 INFLUENZA VACCINE (#1) 2024 HIB VACCINE Aged Out No longer [...] Procedure Name Priority Date/Time Associated Diagnosis Comments CYTOLOGY SMEAR PAP THIN PREP DL 08/31/1997 10:04 AM CDT from Last 3 Months or Most Recently Relevant to Health Maintenance Results * CYTOLOGY SMEAR PAP THIN PREP (08/31/1997 10:04 AM CDT) Result CASE NUMBER [id number] Comment: ORDERING PHYSICIAN FRAN HAAS SPECIMEN TYPE PAP Smear Date 09/01/1997 Procedure Cervical/Endocervical, 1 Vial for Thin Prep Received Specimen Adequacy Satisfactory for Evaluation Categorization Within Normal Limits Snomed. 09/08/1997 1656 <1> Flap Presser Thomas Jacob (ASCP) PAP Footnote The PAP smear is only a screening procedure to aid in the detection of cervical cancer and its precursors. It is not a diagnostic procedure and should not be used as the sole means to detect cervical cancer. Both false negative and false positive results have been experienced. MISCELLANEOUS SAMPLES / Unknown 08/31/1997 10:04 AM CDT 09/02/1997 10:04 AM CDT Historical Provider LAB - PATHOLOGY/CYTOLOGY ORDERABLES Final Result from Last 3 Months or Most Recently Relevant to Health Maintenance Insurance AET[employer] AET[employer] Care Teams School Bus Driver/Custodian Relationship Specialty Start Date End Date Vito Tirado MD [address] [place] [address] PCP - General 09/13/20
== END 2024-11-28 14:50 | disposition home or self-care (01) ==
LOC: ANHFOHIMG 14:51
PROVIDERS: PCP Family Medicine; Visit Provider Nurse Practitioner
DX: Z12.31 Encounter for screening mammogram for malignant neoplasm of breast (principal)
CPT/HCPCS: 77063; 77067